=== PATIENT | female | born 1970 | race Hispanic/Latino ===

== ENCOUNTER 2020-07-24 09:53 | Outpatient (CLI) | payer BC ==
--- NOTE | 2020-07-25 07:48 | Mammography Report ---
BILATERAL DIGITAL SCREENING MAMMOGRAM WITH CAD HISTORY: SCREENING MAMMO TECHNIQUE: Routine digital mammographic imaging performed. This examination was interpreted with autumn bishop benefit of Computer-aided Detection analysis. COMPARISON: 07/20/2019, 12/28/2013. FINDINGS: Breast Density: scattered fibroglandular appearance of the breast tissue. Digital CC and MLO views demonstrate no mammographic evidence of malignancy. IMPRESSION: No mammographic evidence of malignancy. If the clinical examination remains stable, recommend bilate ral mammogram in approximately one year. BIRADS 1: Negative. FURTHER INFORMATION: According to the [employer], yearly mammograms are recommend ed starting at age 40 and continuing as long as a woman is in good health. Clinical Breast Exams shou ld be part of a periodic health exam-about every 3 years for women in their 20s and 30s and every yea r for women 40 and over. Breast self exam is an option for women starting in their 20s. Any breast ch miguel angel noted on a breast self exam should be reported promptly to the patient's healthcare provider. Br east MRI is recommended for women with an approximately 20-25% or greater lifetime risk of breast can cer, including women with a strong family history of breast or ovarian cancer and women who have been treated for Hodgkin's disease. A negative Mammography report should not discourage follow up or biopsy of a clinically significant f inding and/or abnormality. Dense breast tissue may obscure small neoplasms. The patient will be entered into a reminder system with a target due date for the next screening mamm ogram. Signer Name: Shaun Gaviria MD Signed: 07/25/2020 7:44 AM Workstation Name: [id number]
== END 2020-07-24 09:54 | disposition home or self-care (01) ==
LOC: SPVWC 09:53
PROVIDERS: ATTEND Surgery
DX: Z12.31 Encounter for screening mammogram for malignant neoplasm of breast (principal); N64.89 Other specified disorders of breast
CPT/HCPCS: 77067